=== PATIENT | male | born 1950 | race Caucasian/White ===

== ENCOUNTER 2016-06-17 23:51 | Emergency (ER) | payer MEDICARE, OTHER ==
[~2016-06-17] VITALS: Ht 170.2 cm; Wt 77.0 kg
[~2016-06-17 23:51] MED LIST: AMLO-512 PO; ASPI81TA2 PO; LISI-662 PO; RISP0.252 PO; RIVA1PAT3 TD; VITAD1000 PO
[2016-06-17] MEDS ORDERED: TRAZ-144 PO (23:57)
[2016-06-18 00:01] VITALS: BP 151/91
== END 2016-06-18 01:08 | disposition left against medical advice (07) ==
LOC: EMS 23:53
DX: M79.604 Pain in right leg (principal); M79.605 Pain in left leg; M79.89 Other specified soft tissue disorders; E78.00 Pure hypercholesterolemia, unspecified; J44.9 Chronic obstructive pulmonary disease, unspecified; K21.9 Gastro-esophageal reflux disease without esophagitis; F17.210 Nicotine dependence, cigarettes, uncomplicated; Z53.21 Procedure and treatment not carried out due to patient leaving prior to being seen by health care provider
CPT/HCPCS: 99281

== ENCOUNTER 2016-06-18 10:04 | Emergency (ER) | payer MEDICARE, OTHER ==
[~2016-06-18] VITALS: Ht 170.2 cm; Wt 78.0 kg
[~2016-06-18 10:04] MED LIST changes: +TRAZ-144 PO
[2016-06-18 10:55] LABS: BASOPHILS % (AUTO) 0.5 % (0.0-2.0); EOSINOPHILS % (AUTO) 0.6 % (1.0-6.0); HEMATOCRIT 41.5 % (41-53); HEMOGLOBIN 13.9 g/dL (13.5-17.5); LYMPHOCYTES # (AUTO) 1.1 K/uL (1.0-4.8); LYMPHOCYTES % (AUTO) 21.8 % (22.0-44.0); MEAN CORPUSCULAR HEMOGLOBIN 29.7 pg (26.0-34.0); MEAN CORPUSCULAR HGB CONC 33.5 G/dL (31.0-37.0); MEAN CORPUSCULAR VOLUME 89 fL (80-100); MONOCYTES # (AUTO) 0.6 K/uL (0.1-1.0); MONOCYTES % (AUTO) 11.8 % (2.0-9.0); NEUTROPHILS # (AUTO) 3.4 K/uL (1.8-7.7); NEUTROPHILS % (AUTO) 65.3 % (40.0-70.0); PLATELET COUNT (AUTO) 204 K/uL (150-450); RED BLOOD CELL COUNT(AUTO) 4.68 MIL/uL (4.50-5.90); RED CELL DISTRIBUTION WIDTH 14.8 % (11.5-14.5); WHITE BLOOD COUNT (AUTO) 5.2 K/uL (4.5-11.0)
[2016-06-18 11:07] VITALS: BP 169/87
[2016-06-18 11:18] LABS: ANION GAP 16 mmol/L (8-16); CARBON DIOXIDE 23 mmol/L (22-29); CHLORIDE 99 mmol/L (98-107); CREATININE 0.91 mg/dL (0.60-1.30); GLOMERULAR FILTR. RATE CALC > 60 mL/min (>60); POTASSIUM 3.3 mmol/L (3.5-5.1); SODIUM SERUM 138 mmol/L (136-145); UREA NITROGEN, BLOOD 19 mg/dL (7-18)
[2016-06-18 11:24] LABS: ALANINE AMINOTRANSFERASE 24 U/L (12-78); ALBUMIN 3.8 g/dL (3.4-5.0); ASPARTATE AMINOTRANSFERASE 30 U/L (15-37); BILIRUBIN,TOTAL 0.9 mg/dL (0.1-1.0); TOTAL PROTEIN, SERUM 7.8 g/dL (6.4-8.2)
== END 2016-06-18 12:19 | disposition left against medical advice (07) ==
LOC: EEVIPCON 10:08 → EMS 10:08
DX: F20.9 Schizophrenia, unspecified (principal); E78.00 Pure hypercholesterolemia, unspecified; K21.9 Gastro-esophageal reflux disease without esophagitis; F31.9 Bipolar disorder, unspecified; F17.210 Nicotine dependence, cigarettes, uncomplicated; J44.9 Chronic obstructive pulmonary disease, unspecified; Z79.82 Long term (current) use of aspirin
CPT/HCPCS: 36415; 80053; 85025; 99284; G0480

== ENCOUNTER 2016-06-22 21:08 | Inpatient (IN) | payer MEDICARE, MEDICAID ==
[~2016-06-22] VITALS: Ht 170.2 cm; Wt 73.3 kg
[2016-06-23 04:10] LABS: BASOPHILS # (AUTO) 0.07 K/uL (0.00-0.20); BASOPHILS % (AUTO) 1.5 % (0.0-2.0); EOSINOPHILS # (AUTO) 0.29 K/uL (0.00-0.70); HEMATOCRIT 41.6 % (41-53); HEMOGLOBIN 13.9 g/dL (13.5-17.5); LYMPHOCYTES # (AUTO) 1.1 K/uL (1.0-4.8); LYMPHOCYTES % (AUTO) 24.3 % (22.0-44.0); MEAN CORPUSCULAR HEMOGLOBIN 29.6 pg (26.0-34.0); MEAN CORPUSCULAR HGB CONC 33.5 G/dL (31.0-37.0); MEAN CORPUSCULAR VOLUME 88 fL (80-100); MONOCYTES # (AUTO) 0.6 K/uL (0.1-1.0); MONOCYTES % (AUTO) 11.6 % (2.0-9.0); NEUTROPHILS # (AUTO) 2.7 K/uL (1.8-7.7); NEUTROPHILS % (AUTO) 56.4 % (40.0-70.0); PLATELET COUNT (AUTO) 230 K/uL (150-450); RED CELL DISTRIBUTION WIDTH 14.4 % (11.5-14.5); WHITE BLOOD COUNT (AUTO) 4.7 K/uL (4.5-11.0)
[2016-06-23 04:25] LABS: ANION GAP 7 mmol/L (8-16); CALCIUM, TOTAL 9.1 mg/dL (8.8-10.5); CARBON DIOXIDE 30 mmol/L (22-29); CHLORIDE 102 mmol/L (98-107); CREATININE 0.67 mg/dL (0.60-1.30); GLOMERULAR FILTR. RATE CALC > 60 mL/min (>60); POTASSIUM 3.5 mmol/L (3.5-5.1); SODIUM SERUM 139 mmol/L (136-145); UREA NITROGEN, BLOOD 7 mg/dL (7-18)
[2016-06-23 04:32] LABS: ALANINE AMINOTRANSFERASE 21 U/L (12-78); ALBUMIN 3.4 g/dL (3.4-5.0); ASPARTATE AMINOTRANSFERASE 19 U/L (15-37); BILIRUBIN,TOTAL 0.7 mg/dL (0.1-1.0); TOTAL PROTEIN, SERUM 7.3 g/dL (6.4-8.2)
[2016-06-23 06:01] LABS: APPEARANCE,URINE CLEAR (CLEAR); GLUCOSE, URINE (UA) NEGATIVE (NEGATIVE); KETONES,URINE TRACE mg/dL (NEGATIVE); LEUKOCYTE ESTERASE ,URINE NEGATIVE (NEGATIVE); OCCULT BLOOD,URINE NEGATIVE (NEGATIVE); PROTEIN,URINE NEGATIVE (NEGATIVE)
[2016-06-23 06:18] LABS: ADD UA MICROSCOPIC NO
[2016-06-23] MEDS ORDERED: LORazepam 2 MG/ML VIAL IM ONE (08:30)
[2016-06-23] MEDS ORDERED: HALOPERIDOL LACTATE 5 MG/ML VIAL IM ONE (08:30)
[2016-06-23] MEDS ORDERED: DiphenhydrAMINE HCL 50 MG/ML VIAL IM ONE (08:30)
[2016-06-23] MEDS ORDERED: RISP.5 PO (13:36)
[2016-06-23] MEDS: SULFAMETHOX/TRIMETH DS 800-160 MG/TABLET PO ONE ×2 (13:45→14:55)
[2016-06-23 16:10] VITALS: BP 132/79
[2016-06-23] MEDS ORDERED: LOPERAMIDE HCL 2 MG CAPSULE PO PRN (19:30)
[2016-06-23] MEDS ORDERED: PETROLATUM,WHITE 71 GM JELLY TP PRN (19:30)
[2016-06-23] MEDS ORDERED: MAGNESIUM HYDROXIDE SUSPENSION 30 ML UDCUP PO PRN (19:30)
[2016-06-23] MEDS ORDERED: MAG HYDROX/AL HYDROX/SIMETH ES 30 ML SUSPENSION UDCUP PO PRN (19:30)
[2016-06-23] MEDS ORDERED: BACITRACIN 28.4 GM OINTMENT TP PRN (19:30)
[2016-06-23] MEDS ORDERED: ACETAMINOPHEN 325 MG TABLET PO PRN (19:30)
[2016-06-23] MEDS ORDERED: IBUPROFEN 600 MG TABLET PO PRN (19:30)
[2016-06-23] MEDS ORDERED: CloNIDine HCL 0.1 MG TABLET PO PRN (19:30)
[2016-06-23] MEDS ORDERED: ONDANSETRON HCL 4 MG TABLET PO PRN (19:30)
[2016-06-23] MEDS ORDERED: ALBUTEROL SULFATE HFA 90 MCG/PUFF 8 GM INHALER IH PRN (19:30)
[2016-06-23] MEDS ORDERED: BENZOCAINE/MENTHOL LOZENGE [8 LOZENGES/PACKET] MM PRN (19:45)
[2016-06-24 05:22] VITALS: BP 124/90
[2016-06-24 08:02] VITALS: BP 130/67
[2016-06-24] MEDS: OMEPRAZOLE 20 MG CAPSULE PO SCH (08:12)
[2016-06-24] MEDS: ASPIRIN 81 MG CHEWABLE TABLET PO SCH (08:12)
[2016-06-24] MEDS: CHOLECALCIFEROL (VIT D3) 1,000 UNITS TABLET PO SCH (08:13)
[2016-06-24] MEDS: LISINOPRIL 20 MG TABLET PO SCH (08:13)
[2016-06-24] MEDS: HALOPERIDOL 5 MG TABLET PO PRN (08:13)
[2016-06-24] MEDS: CEPHALEXIN MONOHYDRATE 500 MG CAPSULE PO SCH ×3 (08:13→16:07)
[2016-06-24] MEDS: LORazepam 2 MG TABLET PO PRN (08:13)
[2016-06-24] MEDS: AmLODIPine BESYLATE 10 MG TABLET PO SCH (08:13)
[2016-06-24] MEDS: MUPIROCIN CALCIUM 2% 15 GM CREAM TP SCH ×2 (08:18→16:08)
[2016-06-24] MEDS: RisperiDONE 0.5 MG TABLET PO SCH ×2 (12:00→16:08)
[2016-06-24 16:30] VITALS: BP 128/74
[2016-06-25] MEDS: ZOLPIDEM TARTRATE 10 MG TABLET PO PRN ×2 (00:20→21:42)
[2016-06-25 01:30] VITALS: BP 115/68
[2016-06-25 07:10] LABS: CHOL/HDL RATIO 4.1 (4.2-7.3); THYROID STIMULATING HORMONE 0.28 uIU/mL (0.36-3.74)
[2016-06-25] MEDS: OMEPRAZOLE 20 MG CAPSULE PO SCH (09:04)
[2016-06-25] MEDS: AmLODIPine BESYLATE 10 MG TABLET PO SCH (09:04)
[2016-06-25] MEDS: ASPIRIN 81 MG CHEWABLE TABLET PO SCH (09:05)
[2016-06-25] MEDS: CHOLECALCIFEROL (VIT D3) 1,000 UNITS TABLET PO SCH (09:06)
[2016-06-25] MEDS: RisperiDONE 0.5 MG TABLET PO SCH ×2 (09:06→16:28)
[2016-06-25] MEDS: CEPHALEXIN MONOHYDRATE 500 MG CAPSULE PO SCH ×3 (09:06→16:28)
[2016-06-25] MEDS: LISINOPRIL 20 MG TABLET PO SCH (09:06)
[2016-06-25] MEDS: MUPIROCIN CALCIUM 2% 15 GM CREAM TP SCH ×3 (09:07→12:29)
[2016-06-25 09:56] VITALS: BP 114/66
[2016-06-25] MEDS: NICOTINE 7 MG/24 HOUR PATCH TD SCH (12:32)
[2016-06-25 16:19] VITALS: BP 127/81
[2016-06-25] MEDS: LORazepam 2 MG TABLET PO PRN ×2 (16:28→20:31)
[2016-06-25] MEDS: HALOPERIDOL 5 MG TABLET PO PRN ×2 (16:28→20:31)
[2016-06-26 05:08] VITALS: BP 107/74
[2016-06-26] MEDS: LORazepam 2 MG TABLET PO PRN ×2 (05:10→16:05)
[2016-06-26 08:04] VITALS: BP 145/92
[2016-06-26] MEDS: OMEPRAZOLE 20 MG CAPSULE PO SCH (09:28)
[2016-06-26] MEDS: CEPHALEXIN MONOHYDRATE 500 MG CAPSULE PO SCH ×3 (09:28→16:05)
[2016-06-26] MEDS: RisperiDONE 0.5 MG TABLET PO SCH ×2 (09:28→16:05)
[2016-06-26] MEDS: ASPIRIN 81 MG CHEWABLE TABLET PO SCH (09:28)
[2016-06-26] MEDS: LISINOPRIL 20 MG TABLET PO SCH (09:28)
[2016-06-26] MEDS: CHOLECALCIFEROL (VIT D3) 1,000 UNITS TABLET PO SCH (09:28)
[2016-06-26] MEDS: AmLODIPine BESYLATE 10 MG TABLET PO SCH (09:28)
[2016-06-26] MEDS: NICOTINE 7 MG/24 HOUR PATCH TD SCH (09:33)
[2016-06-26] MEDS: MUPIROCIN CALCIUM 2% 15 GM CREAM TP SCH ×2 (10:43→16:12)
[2016-06-26] MEDS ORDERED: QUEtiapine FUMARATE 200 MG TABLET PO PRN (15:30)
[2016-06-26 17:05] VITALS: BP 114/81
[2016-06-26] MEDS: ZOLPIDEM TARTRATE 10 MG TABLET PO PRN (21:55)
[2016-06-27] MEDS: LORazepam 2 MG TABLET PO PRN ×2 (01:35→15:50)
[2016-06-27 05:23] VITALS: BP 139/89
[2016-06-27 08:05] VITALS: BP 136/82
[2016-06-27] MEDS: CEPHALEXIN MONOHYDRATE 500 MG CAPSULE PO SCH ×3 (08:31→16:02)
[2016-06-27] MEDS: RisperiDONE 0.5 MG TABLET PO SCH ×2 (08:31→16:02)
[2016-06-27] MEDS: ASPIRIN 81 MG CHEWABLE TABLET PO SCH (08:31)
[2016-06-27] MEDS: AmLODIPine BESYLATE 10 MG TABLET PO SCH (08:32)
[2016-06-27] MEDS: OMEPRAZOLE 20 MG CAPSULE PO SCH (08:32)
[2016-06-27] MEDS: NICOTINE 7 MG/24 HOUR PATCH TD SCH (08:39)
[2016-06-27] MEDS: CHOLECALCIFEROL (VIT D3) 1,000 UNITS TABLET PO SCH (08:50)
[2016-06-27] MEDS: LISINOPRIL 20 MG TABLET PO SCH (08:51)
[2016-06-27] MEDS: MUPIROCIN CALCIUM 2% 15 GM CREAM TP SCH ×2 (09:30→16:03)
[2016-06-27] MEDS: QUEtiapine FUMARATE 25 MG TABLET PO PRN (18:07)
[2016-06-27 22:17] VITALS: BP 127/82
[2016-06-27] MEDS: ZOLPIDEM TARTRATE 10 MG TABLET PO PRN (22:50)
[2016-06-28 06:26] VITALS: BP 109/74
[2016-06-28 08:05] VITALS: BP 142/77
[2016-06-28] MEDS: RisperiDONE 0.5 MG TABLET PO SCH ×2 (08:23→18:01)
[2016-06-28] MEDS: ASPIRIN 81 MG CHEWABLE TABLET PO SCH (08:23)
[2016-06-28] MEDS: CHOLECALCIFEROL (VIT D3) 1,000 UNITS TABLET PO SCH (08:23)
[2016-06-28] MEDS: OMEPRAZOLE 20 MG CAPSULE PO SCH (08:23)
[2016-06-28] MEDS: LISINOPRIL 20 MG TABLET PO SCH (08:23)
[2016-06-28] MEDS: CEPHALEXIN MONOHYDRATE 500 MG CAPSULE PO SCH ×3 (08:23→18:01)
[2016-06-28] MEDS: AmLODIPine BESYLATE 10 MG TABLET PO SCH (08:23)
[2016-06-28] MEDS: MUPIROCIN CALCIUM 2% 15 GM CREAM TP SCH ×2 (08:27→18:03)
[2016-06-28] MEDS: NICOTINE 7 MG/24 HOUR PATCH TD SCH (08:35)
[2016-06-28] MEDS: LORazepam 2 MG TABLET PO PRN (18:01)
[2016-06-28 21:49] VITALS: BP 103/75
[2016-06-28] MEDS: ZOLPIDEM TARTRATE 10 MG TABLET PO PRN (23:39)
[2016-06-29 05:53] VITALS: BP 144/77
[2016-06-29 08:17] VITALS: BP 150/92
[2016-06-29] MEDS: MUPIROCIN CALCIUM 2% 15 GM CREAM TP SCH ×2 (09:00→16:55)
[2016-06-29] MEDS: ASPIRIN 81 MG CHEWABLE TABLET PO SCH (09:05)
[2016-06-29] MEDS: CEPHALEXIN MONOHYDRATE 500 MG CAPSULE PO SCH ×3 (09:05→16:54)
[2016-06-29] MEDS: LISINOPRIL 20 MG TABLET PO SCH (09:05)
[2016-06-29] MEDS: CHOLECALCIFEROL (VIT D3) 1,000 UNITS TABLET PO SCH (09:05)
[2016-06-29] MEDS: AmLODIPine BESYLATE 10 MG TABLET PO SCH (09:05)
[2016-06-29] MEDS: OMEPRAZOLE 20 MG CAPSULE PO SCH (09:05)
[2016-06-29] MEDS: RisperiDONE 0.5 MG TABLET PO SCH ×2 (09:06→16:54)
[2016-06-29] MEDS: NICOTINE 7 MG/24 HOUR PATCH TD SCH (11:06)
[2016-06-29 13:27] VITALS: BP 111/70
[2016-06-29] MEDS: LORazepam 2 MG TABLET PO PRN ×2 (15:34→21:13)
[2016-06-29] MEDS: QUEtiapine FUMARATE 25 MG TABLET PO PRN (15:34)
[2016-06-29 21:07] VITALS: BP 111/70
[2016-06-29 21:12] VITALS: BP 123/86
[2016-06-29] MEDS: ZOLPIDEM TARTRATE 10 MG TABLET PO PRN (21:13)
[2016-06-30 05:52] VITALS: BP 98/68
[2016-06-30] MEDS: LISINOPRIL 20 MG TABLET PO SCH (09:00)
[2016-06-30] MEDS: AmLODIPine BESYLATE 10 MG TABLET PO SCH (09:00)
[2016-06-30] MEDS: ASPIRIN 81 MG CHEWABLE TABLET PO SCH (09:11)
[2016-06-30] MEDS: RisperiDONE 0.5 MG TABLET PO SCH (09:12)
[2016-06-30] MEDS: NICOTINE 7 MG/24 HOUR PATCH TD SCH (09:12)
[2016-06-30] MEDS: CHOLECALCIFEROL (VIT D3) 1,000 UNITS TABLET PO SCH (09:12)
[2016-06-30] MEDS: CEPHALEXIN MONOHYDRATE 500 MG CAPSULE PO SCH ×2 (09:12→13:34)
[2016-06-30] MEDS: OMEPRAZOLE 20 MG CAPSULE PO SCH (09:12)
[2016-06-30] MEDS: MUPIROCIN CALCIUM 2% 15 GM CREAM TP SCH (09:13)
[2016-06-30 09:17] VITALS: BP 106/78
[2016-06-30] MEDS ORDERED: OMEP20 PO (11:01)
[2016-06-30] MEDS ORDERED: MUPI15CR TP (11:02)
[2016-06-30] MEDS ORDERED: CEPH500 PO (11:03)
== END 2016-06-30 14:10 | disposition home or self-care (01) | DRG 885 ==
LOC: EEVIPCON 21:14 → EMS 21:14 → 3EC 06-23 14:34 → 3EI 06-24 18:59
DX: F25.1 Schizoaffective disorder, depressive type (principal); L03.115 Cellulitis of right lower limb; M19.90 Unspecified osteoarthritis, unspecified site; F31.9 Bipolar disorder, unspecified; I25.10 Atherosclerotic heart disease of native coronary artery without angina pectoris; J44.9 Chronic obstructive pulmonary disease, unspecified; K21.9 Gastro-esophageal reflux disease without esophagitis; E78.00 Pure hypercholesterolemia, unspecified; F17.210 Nicotine dependence, cigarettes, uncomplicated; I10 Essential (primary) hypertension; N40.0 Benign prostatic hyperplasia without lower urinary tract symptoms; E55.9 Vitamin D deficiency, unspecified; E78.5 Hyperlipidemia, unspecified; B18.2 Chronic viral hepatitis C; Z91.14 Patient's other noncompliance with medication regimen; Z79.82 Long term (current) use of aspirin; Z79.899 Other long term (current) drug therapy; Z59.0 Homelessness; Z71.6 Tobacco abuse counseling; Z86.73 Personal history of transient ischemic attack (TIA), and cerebral infarction without residual deficits; Z91.5 Personal history of self-harm
CPT/HCPCS: 70450; 82306; 84443; 92610; 96372; 97110; 97162; 97166; 97535; 99285; G0480; J1200; J1630; J2060

== ENCOUNTER 2016-07-04 16:31 | Emergency (ER) | payer MEDICARE, OTHER ==
[~2016-07-04] VITALS: Ht 170.2 cm; Wt 79.5 kg
[~2016-07-04 16:31] MED LIST changes: +CEPH500 PO; +MUPI15CR TP; +OMEP20 PO; +RISP.5 PO; -RISP0.252 PO; -RIVA1PAT3 TD; -TRAZ-144 PO
[2016-07-04 17:02] LABS: BASOPHILS % (AUTO) 0.8 % (0.0-2.0); EOSINOPHILS % (AUTO) 3.6 % (1.0-6.0); HEMATOCRIT 38.1 % (41-53); HEMOGLOBIN 12.4 g/dL (13.5-17.5); LYMPHOCYTES # (AUTO) 1.2 K/uL (1.0-4.8); LYMPHOCYTES % (AUTO) 19.1 % (22.0-44.0); MEAN CORPUSCULAR HGB CONC 32.5 G/dL (31.0-37.0); MEAN CORPUSCULAR VOLUME 89 fL (80-100); MONOCYTES # (AUTO) 0.5 K/uL (0.1-1.0); MONOCYTES % (AUTO) 8.9 % (2.0-9.0); NEUTROPHILS # (AUTO) 4.2 K/uL (1.8-7.7); NEUTROPHILS % (AUTO) 67.6 % (40.0-70.0); PLATELET COUNT (AUTO) 238 K/uL (150-450); RED BLOOD CELL COUNT(AUTO) 4.28 MIL/uL (4.50-5.90); RED CELL DISTRIBUTION WIDTH 14.5 % (11.5-14.5); WHITE BLOOD COUNT (AUTO) 6.2 K/uL (4.5-11.0)
[2016-07-04 17:14] LABS: ANION GAP 12 mmol/L (8-16); CALCIUM, TOTAL 8.7 mg/dL (8.8-10.5); CARBON DIOXIDE 24 mmol/L (22-29); CHLORIDE 102 mmol/L (98-107); CREATININE 0.97 mg/dL (0.60-1.30); GLOMERULAR FILTR. RATE CALC > 60 mL/min (>60); POTASSIUM 4.2 mmol/L (3.5-5.1); SODIUM SERUM 138 mmol/L (136-145); UREA NITROGEN, BLOOD 34 mg/dL (7-18)
[2016-07-04 17:20] LABS: ALANINE AMINOTRANSFERASE 22 U/L (12-78); ALBUMIN 3.5 g/dL (3.4-5.0); ASPARTATE AMINOTRANSFERASE 19 U/L (15-37); BILIRUBIN,TOTAL 0.5 mg/dL (0.1-1.0); TOTAL PROTEIN, SERUM 7.2 g/dL (6.4-8.2)
[2016-07-04 17:42] LABS: APPEARANCE,URINE CLEAR (CLEAR); GLUCOSE, URINE (UA) NEGATIVE (NEGATIVE); KETONES,URINE NEGATIVE (NEGATIVE); LEUKOCYTE ESTERASE ,URINE NEGATIVE (NEGATIVE); OCCULT BLOOD,URINE NEGATIVE (NEGATIVE); PH,URINE 5.5 (5.0-8.0); PROTEIN,URINE NEGATIVE (NEGATIVE)
[2016-07-04 17:43] LABS: ADD UA MICROSCOPIC NO
[2016-07-04] MEDS ORDERED: LORazepam 2 MG TABLET PO ONE (18:45)
[2016-07-04] MEDS ORDERED: DiphenhydrAMINE HCL 50 MG CAPSULE PO ONE (18:45)
[2016-07-04] MEDS ORDERED: HALOPERIDOL 5 MG TABLET PO ONE (18:45)
[2016-07-04 19:39] VITALS: BP 116/63
== END 2016-07-04 20:03 | disposition home or self-care (01) ==
LOC: EMS 16:37
DX: F25.9 Schizoaffective disorder, unspecified (principal); F17.210 Nicotine dependence, cigarettes, uncomplicated; K21.9 Gastro-esophageal reflux disease without esophagitis; E78.00 Pure hypercholesterolemia, unspecified; F31.9 Bipolar disorder, unspecified; Z79.82 Long term (current) use of aspirin
CPT/HCPCS: 36415; 80053; 80307; 81003; 85025; 99284; 99406; G0480